=== PATIENT | male | born 1960 | race Caucasian/White ===

== ENCOUNTER 2024-10-27 11:15 | Emergency (ER) | payer MEDICAID ==
[2024-10-27 12:48] LABS: #Basophils 0.06 10x3/uL (0.0-0.2); #Eosinophils 0.23 10x3/uL (0.0-0.5); #Monocytes 0.67 10x3/uL (0.0-1.1); #Neutrophils 6.79 10x3/uL (1.5-8.4); %Basophils 0.7 % (0.0-2.0); %Eosinophils 2.6 % (0.0-6.0); %Lymphocytes 12.0 % (18.0-47.0); %Monocytes 7.6 % (0.0-10.0); %Neutrophils 76.9 % (40.0-75.0); Hematocrit 41.4 % (38.8-50.0); Hemoglobin 13.5 g/dL (13.5-17.5); Mean Corpuscular Hemoglobin 27.3 pg (27.0-33.0); Mean Corpuscular Volume 83.8 fL (81.2-95.1); Platelet Count 310 10x3/uL (150-450); Red Blood Cell (RBC) Count 4.94 10x6/uL (4.32-5.72); White Blood Cell (WBC) Count 8.83 10x3/uL (3.5-10.5)
[2024-10-27 12:56] LABS: INR-International Normal Ratio 0.9; PTT 23.6 sec (22.0-33.0); Prothrombin Time 10.3 sec (9.5-12.1)
[2024-10-27] MEDS ORDERED: CEFAZOLIN 2 GM VIAL ONE (12:57)
[2024-10-27] MEDS ORDERED: Boostrix 0.5 ML (Tdap) VIAL (>/=7 yrs of age) ONE (12:57)
[2024-10-27 13:01] LABS: ALT (SGPT) 15 U/L (Less than 45); AST (SGOT) 28 U/L (11-34); Albumin 4.2 g/dL (3.1-4.5); Alkaline Phosphatase 81 U/L (40-110); Anion Gap 16 mmol/L (10-20); BUN (Urea Nitrogen) 17 mg/dL (8.4-25.7); Bilirubin, Total 0.6 mg/dL (0.3-1.2); Calc. Creatinine Clearance 0 mL/min (70-130); Calcium 9.7 mg/dL (7.8-10.44); Carbon Dioxide 24 mmol/L (23-31); Chloride 103 mmol/L (98-107); Globulin 3.6 g/dL (2.4-3.5); Glucose 107 mg/dL (80-115); Potassium 4.1 mmol/L (3.5-5.1); Sodium 139 mmol/L (136-145)
== END 2024-10-27 14:51 | disposition short-term general hospital (02) ==
LOC: CSHERS 11:15 → EDBD 11:15 → CSHERS 14:51
DX: S56.124A Laceration of flexor muscle, fascia and tendon of left middle finger at forearm level, initial encounter (principal); S56.126A Laceration of flexor muscle, fascia and tendon of left ring finger at forearm level, initial encounter; S56.128A Laceration of flexor muscle, fascia and tendon of left little finger at forearm level, initial encounter; I10 Essential (primary) hypertension; W23.0XXA Caught, crushed, jammed, or pinched between moving objects, initial encounter; Z23 Encounter for immunization
CPT/HCPCS: 80053; 85025; 85610; 85730; 90471; 90715; 96374; 96375; 96376; J3010